=== PATIENT | female | born 1955 | race Caucasian/White ===

== ENCOUNTER → 2017-05-15 | Outpatient (CLI) | payer BC ==
[~2017-05-15] MED LIST: CLONAZEPAM 1MG T1 MG PO; LISINOPRIL/HCTZ1 TA3 PO; PHENERGAN 25MG.25 M1 PO; VENLAFAXINE HY150 MG PO
[2017-05-15 17:23] LABS: HEMOGLOBIN 15.2 g/dL (12.2-16.2); LYMPH # 1.6 K/mm3 (0.7-4.5); LYMPH % 22.2 % (10-50.0)
[2017-05-15 18:27] LABS: BUN 14 mg/dL (7-18)
[2017-05-15 19:10] LABS: GFR (ESTIMATED) 101 ML/MIN (59-)
--- NOTE | 2017-05-16 07:55 | RADIOLOGY REPORT PS360 ---
HIP LT 2-3V W/PELVIS IF PERFOR HISTORY: LEFT HIP PAIN, INSTABILITY ORDERING PHYSICIAN: Chanel GUNDERSON PATIENT AGE: 62 years COMPARISON: None FINDINGS: No fracture or dislocation is evident. No significant degenerative change. No lytic or blastic change. Unremarkable soft tissues. Degenerative disc disease is present at L4-L5. IMPRESSION: 1. Negative left hip. 2. Degenerative disc disease L4-L5
--- NOTE | 2017-05-16 07:56 | RADIOLOGY REPORT PS360 ---
KNEE-3 VIEWS-RT HISTORY: INSTABILITY OF RIGHT KNEE ORDERING PHYSICIAN: Chanel GUNDERSON PATIENT AGE: 62 years COMPARISON: None FINDINGS: No fracture or dislocation. No lytic or blastic change. Normal mineralization. Minimal osteoarthritic changes are present at the medial compartment and patellofemoral joint. No other significant findings IMPRESSION: Minimal osteoarthritis
[2017-05-17 08:42] LABS: RA Latex Turbid. <10.0 IU/mL (0.0-13.9)
[2017-05-18 12:36] LABS: Antinuclear Antibodies, IFA Negative (.)
== END ==
LOC: LAB 16:44 → RAD 16:44
PROVIDERS: Nurse Practitioner Family
DX: I10 Essential (primary) hypertension (principal); M25.361 Other instability, right knee; M25.552 Pain in left hip; M15.4 Erosive (osteo)arthritis